=== PATIENT | male | born 1955 | race Asian ===

== ENCOUNTER 2018-05-25 12:00 | Inpatient (IN) | payer OTHER ==
[~2018-05-25] VITALS: Ht 162.6 cm; Wt 64.0 kg
[2018-06-23 14:18] LABS: BASOPHILS % (AUTO) 0.6 % (0.0-2.0); EOSINOPHILS % (AUTO) 3.8 % (1.0-6.0); HEMATOCRIT 32.4 % (41-53); HEMOGLOBIN 10.8 g/dL (13.5-17.5); LYMPHOCYTES # (AUTO) 1.5 K/uL (1.0-4.8); LYMPHOCYTES % (AUTO) 25.4 % (22.0-44.0); MEAN CORPUSCULAR HEMOGLOBIN 30.8 pg (26.0-34.0); MEAN CORPUSCULAR HGB CONC 33.4 G/dL (31.0-37.0); MEAN CORPUSCULAR VOLUME 92 fL (80-100); MONOCYTES # (AUTO) 0.6 K/uL (0.1-1.0); MONOCYTES % (AUTO) 9.6 % (2.0-9.0); NEUTROPHILS # (AUTO) 3.6 K/uL (1.8-7.7); NEUTROPHILS % (AUTO) 60.6 % (40.0-70.0); PLATELET COUNT (AUTO) 239 K/uL (150-450); RED BLOOD CELL COUNT(AUTO) 3.51 MIL/uL (4.50-5.90); RED CELL DISTRIBUTION WIDTH 13.1 % (11.5-14.5)
[2018-06-23 14:27] LABS: CALCIUM, TOTAL 8.7 mg/dL (8.8-10.5); CREATININE 1.49 mg/dL (0.60-1.30); POTASSIUM 4.1 mmol/L (3.5-5.1)
[2018-06-23 14:34] LABS: ALBUMIN 3.7 g/dL (3.4-5.0); BILIRUBIN,TOTAL 0.2 mg/dL (0.1-1.0)
[2018-06-29] MEDS ORDERED: RINGERS SOLUTION,LACTATED 1,000 ML IV ONE ×2 (10:15→10:30)
[2018-06-29] MEDS ORDERED: ROCURONIUM BROMIDE 10 MG/ML 5 ML VIAL IVP ONE (10:25)
[2018-06-29] MEDS ORDERED: PROPOFOL 1% 20 ML VIAL IVP ONE (10:25)
[2018-06-29] MEDS ORDERED: MIDAZOLAM HCL 2 MG/2 ML VIAL IVP ONE (10:25)
[2018-06-29] MEDS ORDERED: ONDANSETRON HCL 4 MG/2 ML VIAL IVP ONE (10:25)
[2018-06-29] MEDS ORDERED: LIDOCAINE/PF 2% 5 ML VIAL IM ONE (10:25)
[2018-06-29] MEDS ORDERED: FentaNYL CITRATE-PF 250 MCG/5 ML VIAL IVP ONE (10:25)
[2018-06-29] MEDS ORDERED: KETAMINE HCL 50 MG/ML 10 ML VIAL IVP ONE (10:25)
[2018-06-29] MEDS ORDERED: DEXAMETHASONE SOD PHOS 4 MG/ML VIAL IVP ONE (10:25)
[2018-06-29] MEDS ORDERED: SUCCINYLCHOLINE CHLORIDE 20 MG/ML 10 ML VIAL IVP ONE (10:25)
[2018-06-29 11:04] LABS: GLUCOMETER DEV NAME(LOC) SDS.; GLUCOSE,POINT OF CARE 135 MG/DL (70-110)
[2018-06-29] MEDS ORDERED: LOSA25TA41 PO (11:54)
[2018-06-29] MEDS ORDERED: GLIP5 PO (11:54)
[2018-06-29] MEDS ORDERED: SIMV-259 PO (11:54)
[2018-06-29] MEDS ORDERED: METF-960 PO (11:54)
[2018-06-29] MEDS ORDERED: ASPI81 PO (11:54)
[2018-06-29] MEDS ORDERED: ACETAMINOPHEN 1000 MG/ISO-OSM 100 ML IV SCH (12:00)
[2018-06-29] MEDS ORDERED: VANCOMYCIN HCL 1 GM/VIAL ONE ×2 (12:29→14:34)
[2018-06-29] MEDS ORDERED: SODIUM CHLORIDE 0.9% 100 ML ONE ×2 (12:30→12:52)
[2018-06-29] MEDS ORDERED: BACITRACIN 28.4 GM OINTMENT TP PRN (13:00)
[2018-06-29] MEDS ORDERED: MAG HYDROX/AL HYDROX/SIMETH 30 ML SUSP UDCUP PO PRN (13:00)
[2018-06-29] MEDS ORDERED: HYDROmorphone 2 MG/ML SYRINGE IVP PRN ×3 (13:00→13:15)
[2018-06-29] MEDS ORDERED: OxyCODONE HCL/ACETAMINOPHEN 5-325 MG TABLET PO PRN ×2 (13:00)
[2018-06-29] MEDS ORDERED: ZOLPIDEM TARTRATE 10 MG TABLET PO PRN (13:00)
[2018-06-29] MEDS ORDERED: DEXAMETHASONE SOD PHOS 4 MG/ML VIAL IVP PRN (13:00)
[2018-06-29] MEDS ORDERED: ONDANSETRON HCL 4 MG/2 ML VIAL IVP PRN ×2 (13:00→13:15)
[2018-06-29] MEDS ORDERED: DiphenhydrAMINE HCL 50 MG/ML VIAL IVP PRN (13:00)
[2018-06-29] MEDS ORDERED: BENZOCAINE/MENTHOL LOZENGE PO PRN (13:00)
[2018-06-29] MEDS: VANCOMYCIN HCL 1 GM/D5% WATER 200 ML IV SCH ×2 (13:00→23:35)
[2018-06-29] MEDS ORDERED: CYCLOBENZAPRINE HCL 10 MG TABLET PO PRN (13:15)
[2018-06-29] MEDS ORDERED: MEPERIDINE-PF 25 MG/ML VIAL IVP PRN (13:15)
[2018-06-29] MEDS ORDERED: ZOLPIDEM TARTRATE 5 MG TABLET PO PRN (13:15)
[2018-06-29] MEDS ORDERED: FentaNYL CITRATE-PF 100 MCG/2 ML VIAL IVP PRN (13:15)
[2018-06-29] MEDS ORDERED: BUPIVACAINE HCL/PF 0.25% 30 ML VIAL ONE (14:25)
[2018-06-29] MEDS ORDERED: BUPIVACAINE HCL/PF 0.5% 30 ML VIAL ONE (14:27)
[2018-06-29] MEDS ORDERED: FentaNYL CITRATE-PF 100 MCG/2 ML VIAL ONE (15:29)
[2018-06-29] MEDS ORDERED: RINGERS SOLUTION,LACTATED 500 ML IV ONE (15:48)
[2018-06-29] MEDS ORDERED: HYDROmorphone 2 MG/ML SYRINGE ONE (16:05)
[2018-06-29 16:53] VITALS: BP 155/83
[2018-06-29] MEDS: ACETAMINOPHEN 1000 MG/ISO-OSM 100 ML IV SCH ×2 (18:00→23:08)
[2018-06-29] MEDS: DEXAMETHASONE SOD PHOS 4 MG/ML VIAL IVP SCH ×2 (18:01→23:08)
[2018-06-29 19:17] VITALS: BP 139/83
[2018-06-29] MEDS: DOCUSATE SODIUM 100 MG CAPSULE PO SCH (19:53)
[2018-06-29] MEDS: OxyCODONE HCL 5 MG IR TABLET PO PRN ×2 (19:54→23:35)
[2018-06-29] MEDS ORDERED: OXYGEN THERAPY IH SCH (20:00)
[2018-06-29 21:50] LABS: GLUCOMETER DEV NAME(LOC) 6N.1; GLUCOSE,POINT OF CARE 417 MG/DL (70-110)
[2018-06-29] MEDS: GlipiZIDE 5 MG TABLET PO SCH (23:07)
[2018-06-29] MEDS: MetFORMIN HCL 500 MG TABLET PO SCH (23:07)
[2018-06-29 23:10] VITALS: BP 150/88
[2018-06-30 05:03] VITALS: BP 142/90
[2018-06-30] MEDS: OxyCODONE HCL 5 MG IR TABLET PO PRN (05:30)
[2018-06-30] MEDS: DEXAMETHASONE SOD PHOS 4 MG/ML VIAL IVP SCH ×2 (05:30→11:51)
[2018-06-30] MEDS: GlipiZIDE 5 MG TABLET PO SCH (05:31)
[2018-06-30] MEDS: ACETAMINOPHEN 1000 MG/ISO-OSM 100 ML IV SCH (05:31)
[2018-06-30 06:39] LABS: GLUCOMETER DEV NAME(LOC) 6N.2; GLUCOSE,POINT OF CARE 248 MG/DL (70-110)
[2018-06-30 07:01] LABS: BASOPHILS % (AUTO) 0.1 % (0.0-2.0); EOSINOPHILS % (AUTO) 0 % (1.0-6.0); HEMATOCRIT 31.9 % (41-53); LYMPHOCYTES # (AUTO) 0.7 K/uL (1.0-4.8); LYMPHOCYTES % (AUTO) 6.7 % (22.0-44.0); MEAN CORPUSCULAR HGB CONC 34.6 G/dL (31.0-37.0); MEAN CORPUSCULAR VOLUME 90 fL (80-100); MONOCYTES # (AUTO) 0.7 K/uL (0.1-1.0); MONOCYTES % (AUTO) 6.5 % (2.0-9.0); NEUTROPHILS # (AUTO) 9.2 K/uL (1.8-7.7); PLATELET COUNT (AUTO) 245 K/uL (150-450); RED BLOOD CELL COUNT(AUTO) 3.56 MIL/uL (4.50-5.90); RED CELL DISTRIBUTION WIDTH 13.1 % (11.5-14.5)
[2018-06-30 07:05] LABS: NEUTROPHILS % (AUTO) 86.7 % (40.0-70.0)
[2018-06-30 07:17] LABS: CALCIUM, TOTAL 8.9 mg/dL (8.8-10.5); CREATININE 1.58 mg/dL (0.60-1.30); POTASSIUM 4.1 mmol/L (3.5-5.1)
[2018-06-30 08:06] VITALS: BP 130/82
[2018-06-30] MEDS: MetFORMIN HCL 500 MG TABLET PO SCH (08:53)
[2018-06-30] MEDS: DOCUSATE SODIUM 100 MG CAPSULE PO SCH (08:53)
[2018-06-30] MEDS ORDERED: OxyCODONE HCL/ACETAMINOPHEN 10-325 MG TABLET PO PRN (12:00)
[2018-06-30 12:07] VITALS: BP 133/72
[2018-06-30 15:41] VITALS: BP 137/80
== END 2018-06-30 15:50 | disposition home or self-care (01) | DRG 472 ==
LOC: 4E 06-29 10:24 → OBSVTOIN 06-29 10:25 → EDBD 06-29 12:00
PROVIDERS: ADMIT Neurological Surgery; ATTEND Neurological Surgery
PROC: 0RB30ZZ Excision of Cervical Vertebral Disc, Open Approach (ICD-10-PCS; 2018-06-29)
PROC: 4A11X4G Monitoring of Peripheral Nervous Electrical Activity, Intraoperative, External Approach (ICD-10-PCS; 2018-06-29)
PROC: 0RG20A0 Fusion of 2 or more Cervical Vertebral Joints with Interbody Fusion Device, Anterior Approach, Anterior Column, Open Approach (ICD-10-PCS; principal; 2018-06-29 12:00)
DX: M50.11 Cervical disc disorder with radiculopathy, high cervical region (principal); M50.021 Cervical disc disorder at C4-C5 level with myelopathy; I10 Essential (primary) hypertension; G47.30 Sleep apnea, unspecified; E11.9 Type 2 diabetes mellitus without complications; J45.909 Unspecified asthma, uncomplicated; M25.78 Osteophyte, vertebrae
CPT/HCPCS: 72040; 87081; 93005; 97161; 97165; 97530; 97535; C1713; G0238; J0131; J0330; J0690; J1100; J1170; J2250; J2405; J2704; J3010; J3370; J3490; J7050; J7120